=== PATIENT | male | born 1960 | race American Indian/Alaskan Native ===

== ENCOUNTER 2024-04-20 13:36 | Emergency (ER) | payer MEDICAID ==
[~2024-04-20] VITALS: Ht 167.6 cm; Wt 65.0 kg
[2024-04-20] MEDS ORDERED: SODIUM CHLORIDE 0.9% 1,000 ML IV PRN (14:00)
[2024-04-20 14:01] LABS: BASOPHILS 0.7 % (0-2); EOSINOPHILS 1.7 % (0-6); HEMATOCRIT 40.5 % (35.0-50.0); HEMOGLOBIN 13.5 g/dL (12.0-18.0); LYMPHOCYTES 27.4 % (24-44); MCH 26.8 (27-36); MCHC 33.4 g/dl (30-36); MCV 80.4 fl (81-99); MONOCYTES 13.4 % (0-12); NEUTROPHILS 56.8 % (39-80); PLATELET COUNT 356 K/uL (140-440); RBC 5.04 M/ul (4.3-5.7); RDW 14.2 (10.5-15.0)
[2024-04-20 14:13] LABS: PARTIAL THROMBOPLASTIN TIME 27.7 Sec (22.9-41.3)
[2024-04-20 14:14] LABS: INR 1.02 (0.80-1.30); PROTIME 12.7 Sec (11.2-14.2)
[2024-04-20 14:22] LABS: ALBUMIN 3.4 g/dL (3.4-5.0); ALBUMIN/GLOBULIN RATIO 0.79 (1.1-2.4); ANION GAP 13.4 (7-21); BILIRUBIN, TOTAL 0.2 ng/dL (0.2-1.0); BUN/CREATININE RATIO 12.19 (6.0-28.6); CALCIUM 8.2 mg/dL (8.5-10.1); CREATININE, SERUM 1.23 mg/dL (0.70-1.30); POTASSIUM 3.4 mmol/L (3.5-5.1); PROTEIN, TOTAL 7.7 g/dL (6.4-8.2)
[2024-04-20 16:46] VITALS: BP 109/70
--- NOTE | 2024-04-22 11:31 | EKG ---
[facility] [address] [facility] [address] [place], [place] [address] Signed Normal sinus rhythm Normal ECG No previous ECGs available Confirmed by Samia Bhatia MD ([id number]) on 04/22/2024 11:31:00 AM Electronically Signed By: SAMIA BHATIA MD 04/22/24 1131 PATIENT NAME: GUTIERREZ LUNA Electrocardiogram DATE OF : 62 PHYSICIAN: SAMIA BHATIA MD REPORT #: [id number] REPORT IS CONFIDENTIAL AND NOT TO BE RELEASED WITHOUT AUTHORIZATION
== END 2024-04-20 16:47 | disposition home or self-care (01) ==
LOC: ED 13:36
PROVIDERS: Emergency Medicine
DX: R55 Syncope and collapse (principal)
CPT/HCPCS: 36415; 70450; 71045; 80053; 82553; 83735; 83880; 84484; 85025; 85610; 85730; 93005; 93010; 99285-25; J7030